=== PATIENT | female | born 1985 | race Caucasian/White ===

== ENCOUNTER 2019-07-12 15:21 | Emergency (ER) | payer OTHER ==
[~2019-07-12] VITALS: Ht 160 cm; Wt 98.4 kg
[2019-07-12 15:25] VITALS: Ht 160 cm; Wt 98.4 kg
[2019-07-12 16:55] VITALS: BP 109/60
== END 2019-07-12 16:58 | disposition home or self-care (01) ==
LOC: ED 15:21
DX: R73.9 Hyperglycemia, unspecified (principal); F41.9 Anxiety disorder, unspecified; Z98.890 Other specified postprocedural states
CPT/HCPCS: 82962; J7030